=== PATIENT | male | born 1960 | race Caucasian/White ===

== ENCOUNTER → 2019-12-02 | Outpatient (CLI) | payer BC | LOC: LAB EV 15:41 → LAB SHORT 15:41 | DX: L02.511 Cutaneous abscess of right hand (principal) | CPT/HCPCS: 87070; 87075; 87205 ==

== ENCOUNTER → 2019-12-03 | Outpatient (CLI) | payer BC | END | disposition home or self-care (01) | LOC: LAB EV 11:36 → LAB SHORT 11:36 | DX: L08.9 Local infection of the skin and subcutaneous tissue, unspecified (principal) | CPT/HCPCS: 87070; 87075; 87205 ==

== ENCOUNTER → 2020-01-04 | Outpatient (CLI) | payer BC | END | disposition home or self-care (01) | LOC: LAB SHORT 19:19 → LAB EV 19:19 | DX: R73.9 Hyperglycemia, unspecified (principal); N39.0 Urinary tract infection, site not specified | CPT/HCPCS: 83036; 87077; 87086; 87186 ==

== ENCOUNTER 2020-07-16 06:08 | Day surgery (SDC) | payer BC ==
[~2020-07-16] VITALS: Ht 188 cm; Wt 103.5 kg
[~2020-07-16 06:08] MED LIST: LISI10 PO; METF500 PO
--- NOTE | 2020-07-16 06:34 | NUR ---
PT ADMITTED TO [facility]. AGREES WITH PLANNED SURGERY. LUNG SOUNDS CLEAR.
--- NOTE | 2020-07-16 10:24 | NUR ---
.Patient up to Ambulate independently. Gait steady. Discharge instructions reviewed with patient. Patient verbalizes understanding. Copy given to patient to take home. Dressing to procedure site clean, dry, intact with no visible drainage, swelling, erythema or bruising noted. Patient States Post-Procedure ride home has been arranged. Discharged via wheelchair to private car for ride home. ALL BELONINGS RETUNED TO PATIENT. PT DID NOT WANT A PAIN PILL BEFORE DISCHARGE. PT ALEXIS PO
== END 2020-07-16 22:53 | disposition home or self-care (01) ==
LOC: ORSCMMR 06:08 → ORD 07:30 → ORSCMMR 22:53
PROVIDERS: Surgery
PROC: 0JB70ZZ Excision of Back Subcutaneous Tissue and Fascia, Open Approach (ICD-10-PCS; principal; 2020-07-16 07:30)
DX: L72.0 Epidermal cyst (principal); I10 Essential (primary) hypertension; E11.9 Type 2 diabetes mellitus without complications; F17.210 Nicotine dependence, cigarettes, uncomplicated; Z79.84 Long term (current) use of oral hypoglycemic drugs
CPT/HCPCS: 82947; 88304; J0690; J1100; J1885; J2250; J2405; J2704; J3010; J7120

== ENCOUNTER → 2023-12-30 | Outpatient (CLI) | payer BC ==
[2023-12-30 14:01] LABS: BASOPHILS ABSOLUTE AUTO 0.06 K/mm3 (0.00-0.23); BASOPHILS PERCENT AUTO 1 % (0-2); EOSINOPHILS ABSOLUTE AUTO 0.03 K/mm3 (0.00-0.68); EOSINOPHILS PERCENT AUTO 0 % (0-6); Hematocrit 53.2 % (37.0-53.0); Hemoglobin 18.7 g/dL (13.5-17.5); IMMATURE GRAN ABSOLUTE AUTO 0.01 K/mm3 (0.00-0.10); IMMATURE GRAN PERCENT AUTO 0 % (0-1); LYMPHOCYTES ABSOLUTE AUTO 1.81 K/mm3 (0.84-5.20); LYMPHOCYTES PERCENT AUTO 25 % (21-46); MONOCYTES ABSOLUTE AUTO 0.59 K/mm3 (0.16-1.47); MONOCYTES PERCENT AUTO 8 % (4-13); Mean Corpuscular HGB 32.9 pg (26.0-34.0); Mean Corpuscular HGB Conc 35.2 g/dL (31.5-36.5); Mean Corpuscular Volume 94 fL (80-100); Mean Platelet Volume 9.7 fL (9.1-12.4); NEUTROPHILS PERCENT AUTO 66 % (41-73); Platelet Count 256 K/mm3 (150-400); RDW Coefficient Variation 12.8 % (11.7-14.2); RDW Standard Deviation 43.7 fL (35.1-46.3); Red Blood Cell Count 5.69 M/mm3 (4.30-5.90)
[2023-12-30 14:10] LABS: Bilirubin, Total 0.9 mg/dL (0.1-1.0); Bun/Creatinine Ratio 9.6 (12.0-20.0); Calcium, Blood 9.3 mg/dL (8.5-10.1); Creatinine, Blood 0.94 mg/dL (0.60-1.20); Globulin, Blood 4.1 g/dL (2.2-4.0); Potassium, Blood 4.6 mmol/L (3.5-5.5); Total Protein, Blood 8.1 g/dL (6.4-8.2)
== END ==
LOC: LAB SHORT 13:53
PROVIDERS: Chiropractor
DX: R10.11 Right upper quadrant pain (principal)
CPT/HCPCS: 80053; 83036; 83690; 85025

== ENCOUNTER → 2024-02-08 | Outpatient (CLI) | payer OTHER ==
[~2024-02-08] MED LIST changes: +JARDIANCE10 MG PO; +LISI5 PO
== END ==
LOC: LAB SHORT 07:23 → LAB 07:23
DX: L98.499 Non-pressure chronic ulcer of skin of other sites with unspecified severity (principal); E11.621 Type 2 diabetes mellitus with foot ulcer; E11.51 Type 2 diabetes mellitus with diabetic peripheral angiopathy without gangrene; E11.42 Type 2 diabetes mellitus with diabetic polyneuropathy; R26.2 Difficulty in walking, not elsewhere classified; M20.5X2 Other deformities of toe(s) (acquired), left foot; M20.5X1 Other deformities of toe(s) (acquired), right foot; M21.6X2 Other acquired deformities of left foot
CPT/HCPCS: 88305; 88307

== ENCOUNTER → 2024-02-08 | Outpatient (CLI) | payer OTHER | END | disposition home or self-care (01) | LOC: LAB SHORT 20:36 → LAB 20:36 | DX: E11.621 Type 2 diabetes mellitus with foot ulcer (principal); L97.509 Non-pressure chronic ulcer of other part of unspecified foot with unspecified severity; E11.51 Type 2 diabetes mellitus with diabetic peripheral angiopathy without gangrene; E11.42 Type 2 diabetes mellitus with diabetic polyneuropathy; R26.2 Difficulty in walking, not elsewhere classified; M20.5X2 Other deformities of toe(s) (acquired), left foot; M20.5X1 Other deformities of toe(s) (acquired), right foot; M21.6X2 Other acquired deformities of left foot | CPT/HCPCS: 87070; 87205 ==

== ENCOUNTER 2025-02-19 11:54 | Emergency (ER) | payer OTHER, MEDICARE ==
[~2025-02-19] VITALS: Ht 188 cm; Wt 86.0 kg
[~2025-02-19 11:54] MED LIST changes: +PIOG15 PO
[2025-02-19 13:02] LABS: BASOPHILS ABSOLUTE AUTO 0.05 K/mm3 (0.00-0.23); BASOPHILS PERCENT AUTO 0 % (0-2); EOSINOPHILS ABSOLUTE AUTO 0.02 K/mm3 (0.00-0.68); EOSINOPHILS PERCENT AUTO 0 % (0-6); Hematocrit 50.6 % (37.0-53.0); IMMATURE GRAN ABSOLUTE AUTO 0.03 K/mm3 (0.00-0.10); IMMATURE GRAN PERCENT AUTO 0 % (0-1); LYMPHOCYTES ABSOLUTE AUTO 1.25 K/mm3 (0.84-5.20); LYMPHOCYTES PERCENT AUTO 11 % (21-46); MONOCYTES ABSOLUTE AUTO 0.91 K/mm3 (0.16-1.47); MONOCYTES PERCENT AUTO 8 % (4-13); Mean Corpuscular HGB 34.8 pg (26.0-34.0); Mean Corpuscular HGB Conc 35.6 g/dL (31.5-36.5); Mean Corpuscular Volume 98 fL (80-100); Mean Platelet Volume 9.5 fL (9.1-12.4); NEUTROPHILS ABSOLUTE AUTO 9.63 K/mm3 (1.96-9.15); NEUTROPHILS PERCENT AUTO 81 % (41-73); Platelet Count 317 K/mm3 (150-400); RDW Coefficient Variation 12.6 % (11.7-14.2); RDW Standard Deviation 45.3 fL (35.1-46.3); Red Blood Cell Count 5.17 M/mm3 (4.30-5.90); White Blood Cell Count 11.89 K/mm3 (4.00-11.30)
[2025-02-19 13:22] LABS: Albumin/Globulin Ratio 0.6 (0.8-1.8); Bilirubin, Total 0.6 mg/dL (0.1-1.0); Bun/Creatinine Ratio 17.7 (12.0-20.0); Calcium, Blood 8.7 mg/dL (8.5-10.1); Creatinine, Blood 0.57 mg/dL (0.60-1.20); Globulin, Blood 5.2 g/dL (2.2-4.0); Potassium, Blood 4.2 mmol/L (3.5-5.5); Total Protein, Blood 8.2 g/dL (6.4-8.2)
[2025-02-19] MEDS ORDERED: METF500C PO (14:46)
[2025-02-19] MEDS ORDERED: AMOX-CLAV 875-1 EAC5 PO (14:47)
[2025-02-19] MEDS ORDERED: Lisinopril10 MG PO (14:47)
[2025-02-19] MEDS ORDERED: NS 1,000 ML IV SCH (15:45)
[2025-02-19 17:30] VITALS: BP 177/97
[2025-02-21] MEDS ORDERED: Crestor40 MG PO (15:59)
== END 2025-02-19 17:49 | disposition home or self-care (01) ==
LOC: ER 11:54
PROVIDERS: Physician Assistant
DX: E11.51 Type 2 diabetes mellitus with diabetic peripheral angiopathy without gangrene (principal); I87.2 Venous insufficiency (chronic) (peripheral); F17.200 Nicotine dependence, unspecified, uncomplicated
CPT/HCPCS: 73630; 80053; 85025; 96360; 99283-25; J7030

== ENCOUNTER 2025-02-22 07:47 | Day surgery (SDC) | payer OTHER ==
[~2025-02-22] VITALS: Ht 188 cm; Wt 86.2 kg
[~2025-02-22 07:47] MED LIST changes: +AMOX-CLAV 875-1 EAC5 PO; +Crestor40 MG PO; +Lisinopril10 MG PO; +METF500C PO
[2025-02-22] MEDS ORDERED: Midazolam HCl 1MG / ML 2ML Vial ONE ×2 (08:03→08:58)
[2025-02-22] MEDS ORDERED: NS 1,000 ML IV ONE ×2 (08:04→08:17)
[2025-02-22] MEDS ORDERED: FentaNYL Citrate 50 MCG/ML 2 ML Injection ONE ×2 (08:04→08:59)
[2025-02-22 08:11] VITALS: BP 183/104
[2025-02-22 08:13] VITALS: BP 183/104
[2025-02-22 08:15] VITALS: BP 152/98
[2025-02-22] MEDS ORDERED: NS 100 ML IV ONE (08:16)
[2025-02-22] MEDS ORDERED: NS 250 ML IV ONE (08:16)
[2025-02-22] MEDS ORDERED: Heparin Sodium 1000 Units/ML 10ML MDV ONE ×2 (08:17→09:24)
[2025-02-22] MEDS ORDERED: HydrALAZINE HCl 20 MG / ML 1ML Vial ONE (09:10)
[2025-02-22 10:00] VITALS: BP 152/82
--- NOTE | 2025-02-22 10:00 | NUR ---
PT ARRIVES BACK FROM SUBSTATION ELECTRICIAN REMAINS IN SUPINE POSITION, RIGHT GROIN SOFT AND NON TENDER. ANGIOSEAL TO GROIN. PT. ASSISTED TO EAT SOME BREAKFST AND PROVIDED WITH FLUIDS. PT. VSS UPON ARRIVAL TO UNIT. CALL LIGHT IN REACH. DISTAL PULSES REMAIN UNCHAGED.
--- NOTE | 2025-02-22 10:14 | NUR ---
NEW PRESCRIPTION FOR PLAVIX CALLED TO [facility] [address] PER PT REQUEST.
[2025-02-22 10:15] VITALS: BP 163/87
[2025-02-22] MEDS ORDERED: CLOP75 PO (10:22)
[2025-02-22 10:31] VITALS: BP 155/86
--- NOTE | 2025-02-22 10:59 | NUR ---
PT HOB ELEVATED TO 30 DEGREES. RIGHT GROIN SITE REMAINS UNCHANGED FROM PREVIOUS ASSESSMENT. ADDITIONAL SNACKS PROVIDED. VSS
--- NOTE | 2025-02-22 11:51 | NUR ---
pt up to bathroom to void. R groin site assessed after sitting at bedside and then again when back to bed, remains unchanged from intial assessment. soft no oozing.
--- NOTE | 2025-02-22 12:42 | NUR ---
Pt site assessed, remains unchanged. Pt. discharge instructions reviewed in detail. no further questions at this time. Pt IV removed, catheter intact. Pt. VSS. Pt update on time for dishcharge. Pt able to get self dressed.
--- NOTE | 2025-02-22 12:49 | NUR ---
pt dressed site assessed again and remains wnl. Pt. verbalized understanding of discharge instructions. Pt to pick pt up. VSS upon discharge. ALENAN.
== END 2025-02-22 13:00 | disposition home or self-care (01) ==
LOC: MHTC 07:47
DX: E11.51 Type 2 diabetes mellitus with diabetic peripheral angiopathy without gangrene (principal); I70.222 Atherosclerosis of native arteries of extremities with rest pain, left leg; I96 Gangrene, not elsewhere classified; I10 Essential (primary) hypertension; E78.5 Hyperlipidemia, unspecified; F17.210 Nicotine dependence, cigarettes, uncomplicated; Z88.5 Allergy status to narcotic agent; Z79.899 Other long term (current) drug therapy; Z79.84 Long term (current) use of oral hypoglycemic drugs
CPT/HCPCS: 37227; 50432; 75625; 75716; 75774; 76937; 99152; 99153; C1714; C1725; C1760; C1769; C1874; C1887; C1894; C2623; J0360; J1644; J2250; J3010; J7030; J7050; Q9967

== ENCOUNTER → 2025-03-06 | Outpatient (CLI) | payer OTHER ==
[~2025-03-06] MED LIST changes: +CLOP75 PO
== END | disposition home or self-care (01) ==
LOC: LAB SHORT 15:00 → LAB 15:00
DX: M86.172 Other acute osteomyelitis, left ankle and foot (principal); M89.8X8 Other specified disorders of bone, other site; Z89.432 Acquired absence of left foot; E11.42 Type 2 diabetes mellitus with diabetic polyneuropathy; E11.621 Type 2 diabetes mellitus with foot ulcer; E11.59 Type 2 diabetes mellitus with other circulatory complications; I70.222 Atherosclerosis of native arteries of extremities with rest pain, left leg
CPT/HCPCS: 87071; 87075; 87076; 87147; 87185; 87205; 88305; 88307; 88311

== ENCOUNTER → 2025-03-20 | Outpatient (CLI) | payer OTHER | LOC: LAB SHORT 18:03 → LAB 18:03 | DX: E11.621 Type 2 diabetes mellitus with foot ulcer (principal) | CPT/HCPCS: 87070; 87075; 87076; 87077; 87147; 87185; 87186; 87205 ==

== ENCOUNTER 2025-05-17 09:47 | Inpatient (IN) | payer OTHER ==
[~2025-05-17] VITALS: Ht 188 cm; Wt 81.0 kg
[2025-05-17 10:26] LABS: BASOPHILS ABSOLUTE AUTO 0.05 K/mm3 (0.00-0.23); BASOPHILS PERCENT AUTO 0 % (0-2); EOSINOPHILS ABSOLUTE AUTO 0.03 K/mm3 (0.00-0.68); EOSINOPHILS PERCENT AUTO 0 % (0-6); Hematocrit 44.0 % (37.0-53.0); Hemoglobin 15.1 g/dL (13.5-17.5); IMMATURE GRAN ABSOLUTE AUTO 0.05 K/mm3 (0.00-0.10); IMMATURE GRAN PERCENT AUTO 0 % (0-1); LYMPHOCYTES ABSOLUTE AUTO 1.28 K/mm3 (0.84-5.20); LYMPHOCYTES PERCENT AUTO 11 % (21-46); MONOCYTES ABSOLUTE AUTO 0.86 K/mm3 (0.16-1.47); MONOCYTES PERCENT AUTO 7 % (4-13); Mean Corpuscular HGB Conc 34.3 g/dL (31.5-36.5); Mean Corpuscular Volume 95 fL (80-100); NEUTROPHILS ABSOLUTE AUTO 9.51 K/mm3 (1.96-9.15); NEUTROPHILS PERCENT AUTO 81 % (41-73); NRBC ABSOLUTE 0.00 K/mm3 (0.00-0.02); NRBC Auto 0.0 /100 WBC (0.0-0.2); Platelet Count 361 K/mm3 (150-400); RDW Coefficient Variation 15.9 % (11.7-14.2); RDW Standard Deviation 55.8 fL (35.1-46.3)
[2025-05-17 10:41] LABS: Prothrombin Time Results 14.6 Sec (9.7-11.5)
[2025-05-17] MEDS ORDERED: CeFAZolin Sodium 2,000 MG in NS 100 ML IV ONE (11:15)
[2025-05-17 11:46] LABS: Alanine Aminotransfer (ALT/SGP 25.0 U/L (12-78); Albumin, Blood 2.5 g/dL (3.4-5.0); Albumin/Globulin Ratio 0.5 (0.8-1.8); Anion Gap 14.0 mmol/L (3-11); Aspartate Aminotrans (AST/SGOT 34.0 U/L (12-37); Bilirubin, Total 0.7 mg/dL (0.1-1.0); Blood Urea Nitrogen 12.0 mg/dL (8-24); CO2, Blood 28.0 mmol/L (21-32); Calcium, Blood 8.6 mg/dL (8.5-10.1); Chloride, Blood 91.0 mmol/L (98-108); Creatinine, Blood 0.57 mg/dL (0.60-1.20); Globulin, Blood 5.5 g/dL (2.2-4.0); Glucose, Blood 219.0 mg/dL (70-99); Potassium, Blood 4.6 mmol/L (3.5-5.5); Sodium, Blood 128.0 mmol/L (136-145); Total Protein, Blood 8.0 g/dL (6.4-8.2)
[2025-05-17] MEDS ORDERED: Ipratropium/Albuterol SulF 2.5-0.5MG/3 ML Amp INH ONE (12:10)
[2025-05-17] MEDS ORDERED: Vancomycin (Pharmacy Consult) IV SCH (13:00)
[2025-05-17 15:13] VITALS: BP 155/103
[2025-05-17] MEDS ORDERED: Insulin Human Lispro 100 Units/ML 3ML Syringe SC SCH (16:30)
--- NOTE | 2025-05-17 16:35 | NUR ---
PT ADMITTED FROM ER TO MEDICAL UNIT AT APPROX 1500. PT ABLE TO STAND AND AMBULATE INDEPENDENTLY TO RESTROOM. PT INDEPENDENT IN ROOM. REPORTS SOB WITH EXERTION AND MINIMAL PAIN WITH AMBULATION. LEFT DIABETIC FOOT ULCER ASSESSED, CLEANSED, AND DRESSED - PHOTOS IN CHART. TELE PLACED ON PT - SR @ 62. PT ORIENTED TO ROOM AND CALL SYSTEM. ADMISSION COMPLETED - MED REC COMPLETED AT BEST ABILITY FROM PT INFORMATION AND MED CLAIM HX. PT STATES HE LIVES WITH SPOUSE BUT HAS NO WAY FOR HER TO INFORM US OF ALL MEDICATIONS PT TAKES AT THIS TIME. PT CURRENTLY RESTING IN BED WITH BED IN LOWEST POSITION AND CALL LIGHT WITHIN REACH.
[2025-05-17] MEDS ORDERED: Piperacillin/Tazobactam Sod 4.5 GM in NS 100 ML IV SCH (16:46)
[2025-05-17] MEDS ORDERED: NS 250 ML IV PRN (17:00)
[2025-05-17] MEDS ORDERED: CLOP75 PO (18:20)
[2025-05-17] MEDS ORDERED: Norco 5-325 Ta1 EACH PO (18:22)
[2025-05-17] MEDS ORDERED: PIOG15 PO (18:23)
[2025-05-17 19:26] VITALS: BP 132/88
[2025-05-17 23:34] VITALS: BP 117/73
[2025-05-18] MEDS ORDERED: Piperacillin/Tazobactam Sod 4.5 GM in NS 100 ML IV SCH
[2025-05-18 05:11] VITALS: BP 110/71
--- NOTE | 2025-05-18 05:21 | NUR ---
SHIFT SUMMARY PT IS ALERT AND ORIENTED TIMES 3, ADMITTED FOR LEFT DIBETIC FOOT ULCER. PT IS ALERT AND ORIENTED TIMES 3-4. PT IS COOPERATIVE WITH CARE AND ABLE TO MAKE NEEDS KNOWN TO STAFF AND INDEPENDENT TO TOILET. PT REQUESTED PAIN CARE MANAGEMENT DILAUDID PO Q4 WITH COMPAZINE AND DILAUDID 1MG IV Q4 WITH REGLAN. PT APPEARED TO SLEEP ON AND OFF THROUGH THE NIGHT. BED IS IN LOW POSITION, CALL LIGHT IS WITHIN REACH, AND RAILS ARE TIMES 2.
[2025-05-18 07:20] VITALS: BP 120/78
[2025-05-18 08:25] LABS: BASOPHILS ABSOLUTE AUTO 0.04 K/mm3 (0.00-0.23); BASOPHILS PERCENT AUTO 1 % (0-2); EOSINOPHILS ABSOLUTE AUTO 0.04 K/mm3 (0.00-0.68); EOSINOPHILS PERCENT AUTO 1 % (0-6); Hematocrit 36.3 % (37.0-53.0); Hemoglobin 12.2 g/dL (13.5-17.5); IMMATURE GRAN ABSOLUTE AUTO 0.03 K/mm3 (0.00-0.10); IMMATURE GRAN PERCENT AUTO 0 % (0-1); LYMPHOCYTES ABSOLUTE AUTO 1.44 K/mm3 (0.84-5.20); LYMPHOCYTES PERCENT AUTO 18 % (21-46); MONOCYTES ABSOLUTE AUTO 0.71 K/mm3 (0.16-1.47); MONOCYTES PERCENT AUTO 9 % (4-13); Mean Corpuscular HGB Conc 33.6 g/dL (31.5-36.5); Mean Corpuscular Volume 94 fL (80-100); NEUTROPHILS ABSOLUTE AUTO 5.60 K/mm3 (1.96-9.15); NEUTROPHILS PERCENT AUTO 71 % (41-73); NRBC ABSOLUTE 0.00 K/mm3 (0.00-0.02); NRBC Auto 0.0 /100 WBC (0.0-0.2); Platelet Count 289 K/mm3 (150-400); RDW Coefficient Variation 15.9 % (11.7-14.2); RDW Standard Deviation 54.6 fL (35.1-46.3)
[2025-05-18 08:41] LABS: Alanine Aminotransfer (ALT/SGP 19.0 U/L (12-78); Albumin, Blood 1.9 g/dL (3.4-5.0); Albumin/Globulin Ratio 0.5 (0.8-1.8); Anion Gap 8.0 mmol/L (3-11); Aspartate Aminotrans (AST/SGOT 25.0 U/L (12-37); Bilirubin, Total 0.4 mg/dL (0.1-1.0); Blood Urea Nitrogen 9.0 mg/dL (8-24); CO2, Blood 28.0 mmol/L (21-32); Calcium, Blood 7.7 mg/dL (8.5-10.1); Chloride, Blood 97.0 mmol/L (98-108); Creatinine, Blood 0.55 mg/dL (0.60-1.20); Globulin, Blood 4.2 g/dL (2.2-4.0); Glucose, Blood 170.0 mg/dL (70-99); Potassium, Blood 3.5 mmol/L (3.5-5.5); Sodium, Blood 129.0 mmol/L (136-145); Total Protein, Blood 6.1 g/dL (6.4-8.2)
[2025-05-18 13:01] VITALS: BP 139/87
[2025-05-18 16:22] VITALS: BP 137/90
[2025-05-18 18:06] LABS: Vancomycin, Trough 22.4 ug/mL (5.0-10.0)
--- NOTE | 2025-05-18 18:32 | NUR ---
SHIFT SUMMARY PT IS A/OX4. INDEPENDENT IN THE ROOM. NO ACUTE CHANGES THROUGHOUT THIS SHIFT. CONTINUING IV ANTIBIOTICS. MRI TO THE LLE COMPLETED THIS MORNING. DR BRISENO AT BEDSIDE THIS AFTERNOON. DR SINGH CONSULTED THIS MORNING AND AT BEDSIDE THIS AFTERNOON. ON TELE RUNNING NORMAL SINUS RYTHYM IN THE 70'S. FAMILY AT BEDSIDE THROUGHOUT THIS SHIFT. EXPECTED ANGIO IN THE MORNING.
[2025-05-18 20:01] VITALS: BP 137/79
[2025-05-19] VITALS (7 sets, daily range): BP systolic 122–157; BP diastolic 71–91
[2025-05-19 04:51] LABS: BASOPHILS ABSOLUTE AUTO 0.07 K/mm3 (0.00-0.23); BASOPHILS PERCENT AUTO 1 % (0-2); EOSINOPHILS ABSOLUTE AUTO 0.07 K/mm3 (0.00-0.68); EOSINOPHILS PERCENT AUTO 1 % (0-6); Hematocrit 37.4 % (37.0-53.0); Hemoglobin 12.4 g/dL (13.5-17.5); IMMATURE GRAN ABSOLUTE AUTO 0.04 K/mm3 (0.00-0.10); IMMATURE GRAN PERCENT AUTO 0 % (0-1); LYMPHOCYTES ABSOLUTE AUTO 2.41 K/mm3 (0.84-5.20); LYMPHOCYTES PERCENT AUTO 21 % (21-46); MONOCYTES ABSOLUTE AUTO 1.05 K/mm3 (0.16-1.47); MONOCYTES PERCENT AUTO 9 % (4-13); Mean Corpuscular HGB Conc 33.2 g/dL (31.5-36.5); Mean Corpuscular Volume 96 fL (80-100); NEUTROPHILS ABSOLUTE AUTO 7.89 K/mm3 (1.96-9.15); NEUTROPHILS PERCENT AUTO 69 % (41-73); NRBC ABSOLUTE 0.00 K/mm3 (0.00-0.02); NRBC Auto 0.0 /100 WBC (0.0-0.2); Platelet Count 331 K/mm3 (150-400); RDW Coefficient Variation 15.9 % (11.7-14.2); RDW Standard Deviation 56.4 fL (35.1-46.3)
[2025-05-19 05:17] LABS: Anion Gap 9.0 mmol/L (3-11); Blood Urea Nitrogen 7.0 mg/dL (8-24); CO2, Blood 27.0 mmol/L (21-32); Calcium, Blood 7.9 mg/dL (8.5-10.1); Chloride, Blood 100.0 mmol/L (98-108); Creatinine, Blood 0.55 mg/dL (0.60-1.20); Glucose, Blood 154.0 mg/dL (70-99); Potassium, Blood 3.5 mmol/L (3.5-5.5); Sodium, Blood 132.0 mmol/L (136-145)
--- NOTE | 2025-05-19 05:33 | NUR ---
SHIFT SUMMARY PT IS ALERT AND ORIENTED TIMES 3, ADMITTED FOR LEFT DIBETIC FOOT ULCER. PT IS ALERT AND ORIENTED TIMES 3-4. PT IS COOPERATIVE WITH CARE AND ABLE TO MAKE NEEDS KNOWN TO STAFF AND INDEPENDENT TO TOILET. PT REQUESTED PAIN CARE MANAGEMENT DILAUDID PO Q4 WITH COMPAZINE AND DILAUDID 1MG IV Q4 WITH REGLAN. PT APPEARED TO SLEEP ON AND OFF THROUGH THE NIGHT. PT NPO AT MIDNIGHT FOR ANGIO WITH IR THIS MORNING. BED IS IN LOW POSITION, CALL LIGHT IS WITHIN REACH, AND RAILS ARE TIMES 2.
[2025-05-19] MEDS ORDERED: NS 250 ML IV ONE (11:17)
[2025-05-19] MEDS ORDERED: NS 1,000 ML IV ONE ×2 (11:18→11:44)
[2025-05-19] MEDS ORDERED: Heparin Sodium 1000 Units/ML 10ML MDV ONE (11:18)
[2025-05-19] MEDS ORDERED: Nitroglycerin 2 MG/20 ML BTL ONE (11:18)
--- NOTE | 2025-05-19 11:36 | NUR ---
PT TAKEN DOWN FOR PROCEDURE. PT'S AT BEDSIDE.
[2025-05-19] MEDS ORDERED: Midazolam HCl 1MG / ML 2ML Vial ONE (11:48)
[2025-05-19] MEDS ORDERED: FentaNYL Citrate 50 MCG/ML 2 ML Injection ONE (11:48)
[2025-05-19] MEDS ORDERED: Dexamethasone Sod Phos 10 MG/ML 1ML VIAL ONE ×2 (12:23→13:22)
[2025-05-19] MEDS ORDERED: Ropivacaine 0.5% HCL/PF 5 MG/ML 30ML Vial ONE ×2 (12:23→13:20)
[2025-05-19] MEDS ORDERED: EpiNEPhrine 1 MG/1 ML 1ML Vial ONE (12:24)
--- NOTE | 2025-05-19 16:52 | NUR ---
SHIFT SUMMARY. PT ARRIVED ON UNIT THIS AFTERNOON S/P REVASC W/ DR. BRISENO. ATE DURING RECOVERY PRIOR TO ARRIVAL ON UNIT. REPORTS ONLY VERY MILD SORENESS, OTHERWISE NO PAIN. VITALS STABLE. RUNNING SINUS ON TELE. DRESSING WAS C/D/I. R. GROIN SITE C/D/I ONLY MINIMAL TENDERNESS. MAINTAINING ADEQUATE SATURATION ON ROOM AIR. DR. HAWKINS VISITED PATIENT THIS EVENING TO TALK W/ PT AND ANSWER QUESTIONS. LIKELY TO GIVE REVASC FEW DAYS AND REASSESS NEED FOR AMPUTATION AT THAT TIME. PT AND UNDERSTANDING. REDRESSED FOOT AT THAT TIME. DRESSING C/D/I AT THIS TIME. SHIFT OTHERWISE HAS GONE WELL. BED LOCKED IN LWEST POSITION. CALL LIGHT WITHIN REACH.
--- NOTE | 2025-05-19 19:29 | NUR ---
ASSUMPTION OF CARE ASSUMED PT'S CARE AT 1900.BEDSIDE REPORT COMPLETED.PT WIDE AWAKE WATCHING TV,SPOUSE AT BEDSIDE.PLAN OF CARE REVIEWED.RIGHT GROIN SITE DRESSING CDI,NO SWELLING OR HEMATOMA NOTED AT THE SITE.DRESSING TO LEFT FOOT CDI.PT DENIES PAIN,DENIES NEEDS AT THIS TIME.CALL LIGHT AND PT'S ITEMS WITHIN REACH.MONITORING ONGOING PER CAREPLAN.
[2025-05-20 04:26] VITALS: BP 144/105
[2025-05-20 04:56] LABS: BASOPHILS ABSOLUTE AUTO 0.04 K/mm3 (0.00-0.23); BASOPHILS PERCENT AUTO 1 % (0-2); EOSINOPHILS ABSOLUTE AUTO 0.08 K/mm3 (0.00-0.68); EOSINOPHILS PERCENT AUTO 1 % (0-6); Hematocrit 35.4 % (37.0-53.0); Hemoglobin 11.8 g/dL (13.5-17.5); IMMATURE GRAN ABSOLUTE AUTO 0.03 K/mm3 (0.00-0.10); IMMATURE GRAN PERCENT AUTO 0 % (0-1); LYMPHOCYTES ABSOLUTE AUTO 1.03 K/mm3 (0.84-5.20); LYMPHOCYTES PERCENT AUTO 13 % (21-46); MONOCYTES ABSOLUTE AUTO 0.53 K/mm3 (0.16-1.47); MONOCYTES PERCENT AUTO 7 % (4-13); Mean Corpuscular HGB Conc 33.3 g/dL (31.5-36.5); Mean Corpuscular Volume 95 fL (80-100); NEUTROPHILS ABSOLUTE AUTO 6.38 K/mm3 (1.96-9.15); NEUTROPHILS PERCENT AUTO 79 % (41-73); NRBC ABSOLUTE 0.00 K/mm3 (0.00-0.02); NRBC Auto 0.0 /100 WBC (0.0-0.2); Platelet Count 292 K/mm3 (150-400); RDW Coefficient Variation 15.8 % (11.7-14.2); RDW Standard Deviation 55.6 fL (35.1-46.3)
[2025-05-20 05:21] LABS: Anion Gap 5.0 mmol/L (3-11); Blood Urea Nitrogen 4.0 mg/dL (8-24); CO2, Blood 32.0 mmol/L (21-32); Calcium, Blood 7.8 mg/dL (8.5-10.1); Chloride, Blood 100.0 mmol/L (98-108); Creatinine, Blood 0.59 mg/dL (0.60-1.20); Glucose, Blood 146.0 mg/dL (70-99); Phosphorus, Blood 3.2 mg/dL (2.5-4.9); Potassium, Blood 3.3 mmol/L (3.5-5.5); Sodium, Blood 134.0 mmol/L (136-145)
--- NOTE | 2025-05-20 06:52 | NUR ---
PT MONITORED THROUGH THE NIGHT.PT HAS BEEN GETTING OOB INDEPENDENTLY TO USE THE BATHROOM.NO ACUTE EVENTS NOTED OVERNIGHT.PT HAS BEEN NPO SINCE MIDNIGHT.PT DENIES PAIN,DENIES NEEDS AT THIS TIME.CALL LIGHT AND PT'S ITEMS WITHIN REACH.MONITORING ONGOING PER CAREPLAN.
[2025-05-20 09:12] VITALS: BP 163/94
[2025-05-20 09:28] LABS: Vancomycin, Trough 21.3 ug/mL (5.0-10.0)
[2025-05-20 12:16] VITALS: BP 151/87
[2025-05-20 15:36] LABS: Vancomycin, Trough 14.7 ug/mL (5.0-10.0)
[2025-05-20 16:48] VITALS: BP 158/89
--- NOTE | 2025-05-20 17:01 | NUR ---
SHIFT SUMMARY. SHIFT HAS GONE WELL OVERALL. PT AOX4, PLEASANT, COOPERATIVE WITH CARE, ABLE TO MAKE NEEDS KNOWN. WAS NPO THIS MORNING UNTIL DR. HAWKINS DIRECTED PT BE ALLOWED TO EAT. SPOKE WITH DR. SINGH REGARDING EVALUATION FOR POSSIBLE FURTHER SURGERY. DR. SINGH PLANS TO ROUND MORNING OF 05/[address] NAVA, DIRECTED TO KEEP PT NPO AFTER MIDNIGHT UNTIL DR. SINGH ROUNDS. PT AWARE. CONTINUES TO HAVE NO MANIFESTATIONS OF ETOH WITHDRAWAL. NOTES AT TIMES THAT HE WANTS TO SMOKE A CIGARETTE BUT DENIES WANTING ANY NICOTINE REPLACEMENT FOR INPATIENT STAY. VITALS STABLE, CONTINUES TO RUN SINUS ON TELE. SHIFT OTHERWISE UNREMARKABLE. BED LOCKED IN LOWEST POSITION. CALL LIGHT LEFT WITHIN REACH. CONTINUING TO MONITOR.
--- NOTE | 2025-05-20 19:25 | NUR ---
ASSUMPTION OF CARE ASSUMED PT'S CARE AT 1900,BEDSIDE REPORT COMPLETED.PT SITTING UP IN BED EATING DINNER,SPOUSE AT BEDSIDE.PLAN OF CARE REVIEWED.PT DENIES PAIN,DENIES NEEDS AT THIS TIME.CALL LIGHT AND PT'S ITEMS WITHIN REACH.MONITORING ONGOING PER CAREPLAN.
[2025-05-20 19:58] VITALS: BP 135/61; BP 139/96
[2025-05-21 00:16] VITALS: BP 153/94
[2025-05-21 04:19] VITALS: BP 143/88
[2025-05-21 04:39] LABS: BASOPHILS ABSOLUTE AUTO 0.04 K/mm3 (0.00-0.23); BASOPHILS PERCENT AUTO 1 % (0-2); EOSINOPHILS ABSOLUTE AUTO 0.07 K/mm3 (0.00-0.68); EOSINOPHILS PERCENT AUTO 1 % (0-6); Hematocrit 31.3 % (37.0-53.0); Hemoglobin 10.5 g/dL (13.5-17.5); IMMATURE GRAN ABSOLUTE AUTO 0.02 K/mm3 (0.00-0.10); IMMATURE GRAN PERCENT AUTO 0 % (0-1); LYMPHOCYTES ABSOLUTE AUTO 1.37 K/mm3 (0.84-5.20); LYMPHOCYTES PERCENT AUTO 16 % (21-46); MONOCYTES ABSOLUTE AUTO 0.82 K/mm3 (0.16-1.47); MONOCYTES PERCENT AUTO 9 % (4-13); Mean Corpuscular HGB Conc 33.5 g/dL (31.5-36.5); Mean Corpuscular Volume 96 fL (80-100); NEUTROPHILS ABSOLUTE AUTO 6.40 K/mm3 (1.96-9.15); NEUTROPHILS PERCENT AUTO 73 % (41-73); NRBC ABSOLUTE 0.00 K/mm3 (0.00-0.02); NRBC Auto 0.0 /100 WBC (0.0-0.2); Platelet Count 282 K/mm3 (150-400); RDW Coefficient Variation 15.6 % (11.7-14.2); RDW Standard Deviation 55.4 fL (35.1-46.3)
[2025-05-21 05:08] LABS: Alanine Aminotransfer (ALT/SGP 17.0 U/L (12-78); Albumin, Blood 1.8 g/dL (3.4-5.0); Albumin/Globulin Ratio 0.4 (0.8-1.8); Anion Gap 7.0 mmol/L (3-11); Aspartate Aminotrans (AST/SGOT 17.0 U/L (12-37); Bilirubin, Total 0.4 mg/dL (0.1-1.0); Blood Urea Nitrogen 9.0 mg/dL (8-24); CO2, Blood 28.0 mmol/L (21-32); Calcium, Blood 7.6 mg/dL (8.5-10.1); Chloride, Blood 104.0 mmol/L (98-108); Creatinine, Blood 0.56 mg/dL (0.60-1.20); Globulin, Blood 4.1 g/dL (2.2-4.0); Glucose, Blood 158.0 mg/dL (70-99); Potassium, Blood 2.9 mmol/L (3.5-5.5); Sodium, Blood 136.0 mmol/L (136-145); Total Protein, Blood 5.9 g/dL (6.4-8.2)
--- NOTE | 2025-05-21 06:32 | NUR ---
PT MONITORED DURING THE NIGHT,NO ACUTE EVENTS NOTED OVERNIGHT.PT HAS BEEN NPO SINCE MIDNIGHT.PT SLEEPING AT THIS TIME,EASILY AROUSABLE.PT DENIES PAIN,DENIES NEEDS.CALL LIGHT AND PT'S ITEMS WITHIN REACH.MONITORING ONGOING PER CAREPLAN.
[2025-05-21] MEDS ORDERED: Potassium Chl 20MEQ/Water100ML 100 ML IV SCH (07:30)
[2025-05-21 07:44] VITALS: BP 176/86
[2025-05-21] MEDS ORDERED: Folic Acid 1 MG TAB PO SCH (09:00)
[2025-05-21] MEDS ORDERED: Piperacillin/Tazobactam Sod 4.5 GM in NS 100 ML IV SCH (12:00)
[2025-05-21 14:07] LABS: Anion Gap 8.0 mmol/L (3-11); Blood Urea Nitrogen 9.0 mg/dL (8-24); CO2, Blood 28.0 mmol/L (21-32); Calcium, Blood 7.7 mg/dL (8.5-10.1); Chloride, Blood 102.0 mmol/L (98-108); Creatinine, Blood 0.51 mg/dL (0.60-1.20); Glucose, Blood 217.0 mg/dL (70-99); Potassium, Blood 3.1 mmol/L (3.5-5.5); Sodium, Blood 135.0 mmol/L (136-145)
[2025-05-21 19:21] VITALS: BP 142/75
[2025-05-22] VITALS (20 sets, daily range): BP systolic 126–182; BP diastolic 69–103
[2025-05-22] MEDS ORDERED: Tranexamic Acid 100 ML IV SCH (00:01)
--- NOTE | 2025-05-22 03:18 | NUR ---
SHIFT SUMMARY NO ACUTE EVENTS DURING THIS SHIFT. PT'S BY THE BEDSIDE @HS. NPO AFTER MIDNIGHT FOR SCHEDULED LEFT BKA TODAY 05/22/25. PT DENIES PAIN AND DISCOMFORT. PT AMBULATES INDEPENDENTLY W/I THE HOSPITAL ROOM. CHAVANLEA INFUSED ORDERED. LEFT FOOT DRESSING IS C/D/I. HS BG 163. CONTINUING PT EDUCATION. BED AT THE LOWEST POSITION, CALL LIGHT W/I REACH. PT IS A/O X4, ABLE TO MAKE HIS NEEDS KNONW AND COOPERATIVE WITH CARE. VSS.
[2025-05-22 05:06] LABS: BASOPHILS ABSOLUTE AUTO 0.05 K/mm3 (0.00-0.23); BASOPHILS PERCENT AUTO 1 % (0-2); EOSINOPHILS ABSOLUTE AUTO 0.07 K/mm3 (0.00-0.68); EOSINOPHILS PERCENT AUTO 1 % (0-6); Hematocrit 31.0 % (37.0-53.0); Hemoglobin 10.4 g/dL (13.5-17.5); IMMATURE GRAN ABSOLUTE AUTO 0.03 K/mm3 (0.00-0.10); IMMATURE GRAN PERCENT AUTO 0 % (0-1); LYMPHOCYTES ABSOLUTE AUTO 1.55 K/mm3 (0.84-5.20); LYMPHOCYTES PERCENT AUTO 20 % (21-46); MONOCYTES ABSOLUTE AUTO 0.90 K/mm3 (0.16-1.47); MONOCYTES PERCENT AUTO 12 % (4-13); Mean Corpuscular HGB Conc 33.5 g/dL (31.5-36.5); Mean Corpuscular Volume 95 fL (80-100); NEUTROPHILS ABSOLUTE AUTO 5.25 K/mm3 (1.96-9.15); NEUTROPHILS PERCENT AUTO 67 % (41-73); NRBC ABSOLUTE 0.00 K/mm3 (0.00-0.02); NRBC Auto 0.0 /100 WBC (0.0-0.2); Platelet Count 308 K/mm3 (150-400); RDW Coefficient Variation 15.4 % (11.7-14.2); RDW Standard Deviation 53.7 fL (35.1-46.3)
[2025-05-22 05:28] LABS: Anion Gap 9.0 mmol/L (3-11); Blood Urea Nitrogen 5.0 mg/dL (8-24); CO2, Blood 24.0 mmol/L (21-32); Calcium, Blood 7.3 mg/dL (8.5-10.1); Chloride, Blood 104.0 mmol/L (98-108); Creatinine, Blood 0.51 mg/dL (0.60-1.20); Glucose, Blood 117.0 mg/dL (70-99); Potassium, Blood 3.7 mmol/L (3.5-5.5); Sodium, Blood 133.0 mmol/L (136-145)
[2025-05-22] MEDS ORDERED: Piperacillin/Tazobactam Sod 4.5 GM in NS 100 ML IV SCH (12:00)
--- NOTE | 2025-05-22 14:29 | NUR ---
PATIENT LEFT FLOOR WITH SURGICAL TEAM
[2025-05-22] MEDS ORDERED: FentaNYL Citrate 50 MCG/ML 2 ML Injection ONE ×2 (15:28→17:06)
[2025-05-22] MEDS ORDERED: Dexamethasone Sod Phos 10 MG/ML 1ML VIAL ONE (15:44)
[2025-05-22] MEDS ORDERED: Ondansetron HCl 2 MG / ML 2ML Vial ONE (15:44)
[2025-05-22] MEDS ORDERED: Metoclopramide HCl 5MG / ML 2ML Vial IV PRN (15:55)
[2025-05-22] MEDS ORDERED: HYDROmorphone HCl/Pf 1MG SYR IV PRN ×3 (15:55→19:30)
[2025-05-22] MEDS ORDERED: FentaNYL Citrate 50 MCG/ML 2 ML Injection IV PRN ×2 (15:55)
[2025-05-22] MEDS ORDERED: Albuterol 2.5 MG/3 ML VIAL INH PRN (15:55)
[2025-05-22 15:59] LABS: Vancomycin, Trough 13.6 ug/mL (5.0-10.0)
[2025-05-22] MEDS ORDERED: Ketamine HCl 100 MG / ML 5ML Vial ONE (15:59)
[2025-05-22] MEDS ORDERED: HYDROmorphone HCl/Pf 1MG SYR ONE ×2 (16:04→17:20)
[2025-05-22] MEDS ORDERED: Sugammadex Sodium 200 MG/2ML SDV (100 MG/ML) ONE (16:50)
--- NOTE | 2025-05-22 17:07 | NUR ---
SHIFT SUMMARY PATIENT ABLE TO AMBULATE, PAINFULLY AROUND ROOM INDEPENDENTLY PRIOR TO SURGERY. FAMILY IN ROOM. PATIENT APPEARS IRRITATED EASILY THIS SHIFT. A/O X4. CURRENTLY OFF FLOOR IN SURGICAL CARE.
--- NOTE | 2025-05-22 17:31 | NUR ---
RECEIVED REPORT FROM PACU
--- NOTE | 2025-05-22 19:27 | NUR ---
CONTACTED GORE STITCHER FOR PAIN MEDS ALL ORDERS HAD BEEN D'C AFTER ARRIVAL TO FLOOR. ATTEMPTED CALL TO DR BROWNING WHO DID NOT ANSWER. OKAYED FOR 0.5-1 DILAUDED Q2 PRN. ORDERS PLACED
--- NOTE | 2025-05-22 21:35 | NUR ---
NURSING NOTE: PT HAD AN UNWITNESSED FALL. INSTRUCTED TO CALL WHEN HE WANTED TO USE THE RESTROOM, BUT PT INSISTED HE COULD DO IT HIMSELF, BUT AGREED TO CALL. HEARD A THUD FROM THE [facility] WAY GO INTO THE ROOM TO FIND PT ON THE FLOOR IN THE BATHROOM. STATES HE GRABBED THE WALKER AND WAS GOING FINE UNTIL HE FELL AND HELPED HIMSELF DOWN VIA THE WALL. STATES THAT HE "FORGOT HE HAD A BKA". DENIES ANY EXTRA PAIN. ONLY A SMALL SKIN TEAR ON L ELBOW AND ON BACK. CHARTED AND SOME BANDAGES PLACED ON THE WOUNDS. PT EMBARASSED BUT IS OTHERWISE STABLE AND NO NEURO DEFICITS. DENIES HITTING HEAD. CHARGE NURSE NOTIFIED, PROVIDER CALLED SHORTLY AFTER. NO NEW ORDERS. PT IN BED RESTING, BED IN LOWEST POSITION, CALL LIGHT IN REACH. BED ALARM IN PLACE. CONTINUING CARE.
[2025-05-23] MEDS ORDERED: CeFAZolin Sodium 2,000 MG in NS 100 ML IV SCH
[2025-05-23 00:48] VITALS: BP 179/95
[2025-05-23 04:27] VITALS: BP 173/92
--- NOTE | 2025-05-23 04:42 | NUR ---
SHIFT SUMMARY: PT AOX4 1PA STAND PIVOT TO BSC OR IND WITH URINAL. HAD A FALL AT BEGINNING OF SHIFT, MINOR SKIN TEAR AND WOUND NOTED, SEE NURSING NOTE FOR DETAILS. PT AGREEABLE TO CALLING FOR HELP AND USING URINAL TO VOID. HAS BEEN COMPLIANT WITH CALLING. SOME COMPLAINTS OF PAIN, MEDICATED PER EMR. PT TOLERATING MEDICATIONS WELL. PT IS COOPERATIVE IN CARE AND ABLE TO MAKE NEEDS KNOWN. PT IN BED SLEEPING, BED IN LOWEST POSITION, CALL LIGHT IN REACH. CONTINUING CARE.
[2025-05-23 05:11] LABS: BASOPHILS ABSOLUTE AUTO 0.05 K/mm3 (0.00-0.23); BASOPHILS PERCENT AUTO 1 % (0-2); EOSINOPHILS ABSOLUTE AUTO 0.03 K/mm3 (0.00-0.68); EOSINOPHILS PERCENT AUTO 0 % (0-6); Hematocrit 34.5 % (37.0-53.0); Hemoglobin 11.4 g/dL (13.5-17.5); IMMATURE GRAN ABSOLUTE AUTO 0.03 K/mm3 (0.00-0.10); IMMATURE GRAN PERCENT AUTO 0 % (0-1); LYMPHOCYTES ABSOLUTE AUTO 1.89 K/mm3 (0.84-5.20); LYMPHOCYTES PERCENT AUTO 21 % (21-46); MONOCYTES ABSOLUTE AUTO 0.89 K/mm3 (0.16-1.47); MONOCYTES PERCENT AUTO 10 % (4-13); Mean Corpuscular HGB Conc 33.0 g/dL (31.5-36.5); Mean Corpuscular Volume 95 fL (80-100); NEUTROPHILS ABSOLUTE AUTO 6.24 K/mm3 (1.96-9.15); NEUTROPHILS PERCENT AUTO 69 % (41-73); NRBC ABSOLUTE 0.00 K/mm3 (0.00-0.02); NRBC Auto 0.0 /100 WBC (0.0-0.2); Platelet Count 344 K/mm3 (150-400); RDW Coefficient Variation 15.0 % (11.7-14.2); RDW Standard Deviation 52.9 fL (35.1-46.3)
[2025-05-23 05:27] LABS: Anion Gap 11.0 mmol/L (3-11); Blood Urea Nitrogen 6.0 mg/dL (8-24); CO2, Blood 23.0 mmol/L (21-32); Calcium, Blood 7.5 mg/dL (8.5-10.1); Chloride, Blood 99.0 mmol/L (98-108); Creatinine, Blood 0.51 mg/dL (0.60-1.20); Glucose, Blood 71.0 mg/dL (70-99); Potassium, Blood 4.0 mmol/L (3.5-5.5); Sodium, Blood 129.0 mmol/L (136-145)
[2025-05-23] MEDS ORDERED: Lactobacil 2-S.Thermo-Bifido 1 1 Cap PO SCH (09:00)
[2025-05-23 09:24] VITALS: BP 164/86
[2025-05-23] MEDS ORDERED: HYDROcodone 5-APAP 325 TAB PO PRN (09:45)
[2025-05-23 13:30] VITALS: BP 184/104
[2025-05-23 16:54] VITALS: BP 187/96
--- NOTE | 2025-05-23 17:59 | NUR ---
SHIFT SUMMARY PT CONT LEVEL OF CARE S/P L BKA 1 DAY. PT NOTED TO BE A&OX4 PT IS ABLE TO MAKE NEEDS KNOWN. PT STARTED BACK ON A CONSISTENT CARB DIET THIS SHIFT. PT NOTED TO VOICE C/O PAIN TO L LEG RECIEVED ORDER FOR [facility] AND PT HAS BEEN MEDICATED PER EMAR SEE MAR FOR MORE DETAILS. CURRENTLY AWAITING ORTHO TO ROUND ON PT. POSSIBLE DC IN NEXT 48HRS.
[2025-05-23 19:52] VITALS: BP 183/99
--- NOTE | 2025-05-24 02:00 | NUR ---
SHIFT SUMMARY: PT IS AOX4. PT IS POD 2 LEFT BKA. DRESSING NOT CHANGED. WAITING FOR SURGEONS ORDERS. MEDICATED PER EMAR FOR PAIN AND ANTIBIOTICS. PT RESTING MOST OF THE NIGHT. NO ACUTE CHANGES.
[2025-05-24 04:24] VITALS: BP 183/97
[2025-05-24 05:16] LABS: Anion Gap 7.0 mmol/L (3-11); Blood Urea Nitrogen 5.0 mg/dL (8-24); CO2, Blood 28.0 mmol/L (21-32); Calcium, Blood 7.5 mg/dL (8.5-10.1); Chloride, Blood 99.0 mmol/L (98-108); Creatinine, Blood 0.5 mg/dL (0.60-1.20); Glucose, Blood 106.0 mg/dL (70-99); Potassium, Blood 3.3 mmol/L (3.5-5.5); Sodium, Blood 131.0 mmol/L (136-145)
[2025-05-24 07:22] VITALS: BP 176/98
[2025-05-24] MEDS ORDERED: Enoxaparin 40 MG/0.4 ML SYR SC SCH (09:00)
[2025-05-24 11:11] VITALS: BP 180/99
[2025-05-24] MEDS ORDERED: PROBIOTIC1 EA13 PO (16:07)
[2025-05-24] MEDS ORDERED: AMOCLA875 PO (16:07)
--- NOTE | 2025-05-24 16:28 | NUR ---
DR BROWNING CAME TO SEE THE PT- SURGICAL DRESSING WAS REMOVED, VERBAL ORDER RECIEVED FOR WOUND CARE. PLACED ORDER IN ORDER MANAGEMENT AND CALLED DR NUNES, SHE IS AWARE DR BROWNING STATES THE PT CAN GO HOME TODAY.
[2025-05-24 16:38] VITALS: BP 183/101
--- NOTE | 2025-05-24 19:15 | NUR ---
DISCHARGE NOTE- PT WAS GIVEN VERBAL AND WRITTEN DISCHARGE INSTRUCTIONS AND ACKNOWLEDGED UNDERSTANDING OF THEM. IV DC'D PRIOR TO DISCHARGE. PT ESCORTED OUT VIA WC BY THE DOUBLER HELPER NO S&S OF DISTRESS NOTED AT THE TIME OF DISCHARGE.
== END 2025-05-24 18:12 | disposition home or self-care (01) | DRG 240 ==
LOC: ER 09:47 → MEDS 12:58 → PCU 05-19 13:48 → MEDS 05-21 16:16
PROVIDERS: Emergency Medicine; Family Medicine; Orthopaedic Surgery Sports Medicine; ADMIT Internal Medicine
PROC: 3E03329 Introduction of Other Anti-infective into Peripheral Vein, Percutaneous Approach (ICD-10-PCS; 2025-05-17)
PROC: 047L3Z1 Dilation of Left Femoral Artery using Drug-Coated Balloon, Percutaneous Approach (ICD-10-PCS; 2025-05-19)
PROC: 047N3Z1 Dilation of Left Popliteal Artery using Drug-Coated Balloon, Percutaneous Approach (ICD-10-PCS; 2025-05-19)
PROC: 047S3ZZ Dilation of Left Posterior Tibial Artery, Percutaneous Approach (ICD-10-PCS; 2025-05-19)
PROC: 04FL3ZZ Fragmentation of Left Femoral Artery, Percutaneous Approach (ICD-10-PCS; 2025-05-19)
PROC: 04FN3ZZ Fragmentation of Left Popliteal Artery, Percutaneous Approach (ICD-10-PCS; 2025-05-19)
PROC: 0Y6J0Z3 Detachment at Left Lower Leg, Low, Open Approach (ICD-10-PCS; principal; 2025-05-22 15:00)
DX: E11.52 Type 2 diabetes mellitus with diabetic peripheral angiopathy with gangrene (principal); M84.675A Pathological fracture in other disease, left foot, initial encounter for fracture; M86.8X7 Other osteomyelitis, ankle and foot; E11.621 Type 2 diabetes mellitus with foot ulcer; E11.69 Type 2 diabetes mellitus with other specified complication; L97.529 Non-pressure chronic ulcer of other part of left foot with unspecified severity; I10 Essential (primary) hypertension; E78.5 Hyperlipidemia, unspecified; J44.89 Other specified chronic obstructive pulmonary disease; E66.9 Obesity, unspecified; F10.10 Alcohol abuse, uncomplicated; F17.210 Nicotine dependence, cigarettes, uncomplicated; F41.9 Anxiety disorder, unspecified; I77.1 Stricture of artery; Z89.412 Acquired absence of left great toe; Z89.422 Acquired absence of other left toe(s); Z68.23 Body mass index [BMI] 23.0-23.9, adult; Z79.2 Long term (current) use of antibiotics; Z79.84 Long term (current) use of oral hypoglycemic drugs; Z79.02 Long term (current) use of antithrombotics/antiplatelets; Z79.899 Other long term (current) drug therapy; Z90.49 Acquired absence of other specified parts of digestive tract; Z88.5 Allergy status to narcotic agent
CPT/HCPCS: 36415; 37225; 37228; 71045; 73630; 73720; 75625; 75716; 75774; 76937; 80048; 80053; 80202; 82947; 83605; 83880; 84100; 84484; 85025; 85610; 85730; 87040; 88307; 93005; 93010; 93926; 94760; 96374; 97116; 97161; 97530; 99152; 99153; 99285-25; A9270; A9579; C1714; C1725; C1760; C1769; C1887; C1894; C2623; J0165; J0690; J1100; J1171; J1644; J1650; J2250; J2405; J2543; J2704; J2795; J3010; J3373; J3411; J3480; J7030; J7040; J7050; Q9967

== ENCOUNTER 2025-06-19 00:32 | Emergency (ER) | payer OTHER ==
[~2025-06-19] VITALS: Ht 188 cm; Wt 81.7 kg
[~2025-06-19 00:32] MED LIST changes: +AMOCLA875 PO; +Norco 5-325 Ta1 EACH PO; +PROBIOTIC1 EA13 PO
[2025-06-19 00:40] VITALS: BP 135/81
[2025-06-19] MEDS ORDERED: CEPH500 PO (03:12)
== END 2025-06-19 03:17 | disposition home or self-care (01) ==
LOC: ER 00:32
DX: T81.31XA Disruption of external operation (surgical) wound, not elsewhere classified, initial encounter (principal); I10 Essential (primary) hypertension; E11.9 Type 2 diabetes mellitus without complications; E78.5 Hyperlipidemia, unspecified; Z87.891 Personal history of nicotine dependence; Z79.84 Long term (current) use of oral hypoglycemic drugs; Z79.899 Other long term (current) drug therapy; Z79.02 Long term (current) use of antithrombotics/antiplatelets; Z88.5 Allergy status to narcotic agent
CPT/HCPCS: 73560-LT; 99283-25

== ENCOUNTER 2025-06-20 13:04 | Day surgery (SDC) | payer OTHER ==
[2025-06-20] VITALS (8 sets, daily range): BP systolic 103–157; BP diastolic 59–96
[~2025-06-20] VITALS: Ht 188 cm; Wt 74.9 kg
[~2025-06-20 13:04] MED LIST changes: +CEPH500 PO
[2025-06-20] MEDS ORDERED: CeFAZolin Sodium 2,000 MG in NS 100 ML IV SCH (13:35)
[2025-06-20] MEDS ORDERED: HYDROmorphone HCl/Pf 1MG SYR IV PRN (13:45)
[2025-06-20] MEDS ORDERED: FentaNYL Citrate 50 MCG/ML 2 ML Injection IV PRN ×2 (13:45)
[2025-06-20] MEDS ORDERED: Albuterol 2.5 MG/3 ML VIAL INH PRN (13:50)
[2025-06-20] MEDS ORDERED: Ondansetron HCl 2 MG / ML 2ML Vial IV PRN (13:50)
--- NOTE | 2025-06-20 13:55 | NUR ---
Wheelchaired into Day Surgery. History, Chart, Medications and Allergies reviewed before start of procedure. Pre-Op teaching done. Pt verbalizes understanding. Patient States Post-Procedure ride home has been arranged.
[2025-06-20] MEDS ORDERED: FentaNYL Citrate 50 MCG/ML 2 ML Injection ONE (14:06)
[2025-06-20 15:54] LABS: BASOPHILS ABSOLUTE AUTO 0.03 K/mm3 (0.00-0.23); BASOPHILS PERCENT AUTO 1 % (0-2); EOSINOPHILS ABSOLUTE AUTO 0.06 K/mm3 (0.00-0.68); EOSINOPHILS PERCENT AUTO 1 % (0-6); Hematocrit 35.2 % (37.0-53.0); Hemoglobin 11.7 g/dL (13.5-17.5); IMMATURE GRAN ABSOLUTE AUTO 0.01 K/mm3 (0.00-0.10); IMMATURE GRAN PERCENT AUTO 0 % (0-1); LYMPHOCYTES ABSOLUTE AUTO 1.91 K/mm3 (0.84-5.20); LYMPHOCYTES PERCENT AUTO 33 % (21-46); MONOCYTES ABSOLUTE AUTO 0.47 K/mm3 (0.16-1.47); MONOCYTES PERCENT AUTO 8 % (4-13); Mean Corpuscular HGB Conc 33.2 g/dL (31.5-36.5); Mean Corpuscular Volume 96 fL (80-100); NEUTROPHILS ABSOLUTE AUTO 3.40 K/mm3 (1.96-9.15); NEUTROPHILS PERCENT AUTO 58 % (41-73); NRBC ABSOLUTE 0.00 K/mm3 (0.00-0.02); NRBC Auto 0.0 /100 WBC (0.0-0.2); Platelet Count 205 K/mm3 (150-400); RDW Coefficient Variation 15.9 % (11.7-14.2); RDW Standard Deviation 56.8 fL (35.1-46.3)
[2025-06-20] MEDS ORDERED: Bupivacaine 0.5% W/EPI 1:200000 SDV 30 ML Vial ONE (16:06)
[2025-06-20] MEDS ORDERED: Ondansetron HCl 2 MG / ML 2ML Vial ONE (16:06)
[2025-06-20] MEDS ORDERED: Vancomycin HCl 1000 MG ADDvantage ONE (16:10)
--- NOTE | 2025-06-20 16:13 | NUR ---
06/20/25 1613 Elizabeth Carballo VANCOMYCIN POWDER 1GM INSTILLED INTO WOUND BY .
[2025-06-20 16:20] LABS: Anion Gap 3.0 mmol/L (3-11); Blood Urea Nitrogen 6.0 mg/dL (8-24); CO2, Blood 29.0 mmol/L (21-32); Calcium, Blood 8.2 mg/dL (8.5-10.1); Chloride, Blood 106.0 mmol/L (98-108); Creatinine, Blood 0.58 mg/dL (0.60-1.20); Glucose, Blood 103.0 mg/dL (70-99); Potassium, Blood 3.7 mmol/L (3.5-5.5); Sodium, Blood 134.0 mmol/L (136-145)
[2025-06-20] MEDS ORDERED: HYDROmorphone HCl/Pf 1MG SYR ONE (16:53)
--- NOTE | 2025-06-20 17:36 | NUR ---
Discharge instructions reviewed with patient. Patient verbalizes understanding. Copy given to patient to take home. Dressing to procedure site clean, dry, intact with no visible drainage, swelling, erythema or bruising noted. Patient States Post-Procedure ride home has been arranged. Discharged via wheelchair to private car for ride home. OUT VIA TO CARE OF SPOUSE AT [id number]
== END 2025-06-20 23:00 | disposition home or self-care (01) ==
LOC: ORSCMMR 13:04
PROVIDERS: Nurse Anesthetist, Certified Registered; Orthopaedic Surgery
PROC: 0KBT0ZZ Excision of Left Lower Leg Muscle, Open Approach (ICD-10-PCS; principal; 2025-06-20 16:00)
DX: T81.30XA Disruption of wound, unspecified, initial encounter (principal); I10 Essential (primary) hypertension; E11.9 Type 2 diabetes mellitus without complications; E78.5 Hyperlipidemia, unspecified; F17.210 Nicotine dependence, cigarettes, uncomplicated; Z79.84 Long term (current) use of oral hypoglycemic drugs; Z79.02 Long term (current) use of antithrombotics/antiplatelets; Z79.899 Other long term (current) drug therapy; D46.1 Refractory anemia with ring sideroblasts; I73.9 Peripheral vascular disease, unspecified
CPT/HCPCS: 36415; 80048; 82947; 85025; 87071; 87075; 87077; 87106; 87186; 87205; A9270; J0690; J1171; J2405; J2704; J3010; J3373; J7050; J7120

== ENCOUNTER 2025-08-16 11:25 | Day surgery (SDC) | payer OTHER ==
[~2025-08-16] VITALS: Ht 188 cm; Wt 79.5 kg
[2025-08-16] VITALS (11 sets, daily range): BP systolic 121–180; BP diastolic 67–94
[2025-08-16] MEDS ORDERED: FentaNYL Citrate 50 MCG/ML 2 ML Injection ONE (12:26)
[2025-08-16] MEDS ORDERED: Ondansetron HCl 2 MG / ML 2ML Vial ONE (12:27)
[2025-08-16] MEDS ORDERED: Metoclopramide HCl 5MG / ML 2ML Vial ONE (12:27)
[2025-08-16] MEDS ORDERED: HYDROmorphone HCl/Pf 1MG SYR IV PRN (12:30)
[2025-08-16] MEDS ORDERED: Metoclopramide HCl 5MG / ML 2ML Vial IV PRN (12:30)
[2025-08-16] MEDS ORDERED: Ondansetron HCl 2 MG / ML 2ML Vial IV PRN (12:30)
[2025-08-16] MEDS ORDERED: FentaNYL Citrate 50 MCG/ML 2 ML Injection IV PRN ×2 (12:30)
[2025-08-16] MEDS ORDERED: Morphine Sulfate 4 MG/1 ML Injection IV PRN (12:35)
[2025-08-16] MEDS ORDERED: CeFAZolin Sodium 2,000 MG in NS 100 ML IV SCH (12:50)
[2025-08-16] MEDS ORDERED: Vancomycin HCl 1000 MG ADDvantage ONE (12:59)
[2025-08-16] MEDS ORDERED: CeFAZolin Sodium 1000 mg Vial ONE (13:03)
[2025-08-16] MEDS ORDERED: HydrALAZINE HCl 20 MG / ML 1ML Vial ONE (13:10)
[2025-08-16] MEDS ORDERED: Bupivacaine 0.5% HCl 5 MG/ML 30MLVIAL ONE (13:23)
[2025-08-16] MEDS ORDERED: Sugammadex Sodium 200 MG/2ML SDV (100 MG/ML) ONE (13:26)
[2025-08-16] MEDS ORDERED: HYDROmorphone HCl/Pf 1MG SYR ONE (14:14)
--- NOTE | 2025-08-16 15:27 | NUR ---
PT DRESSES HIMSELF AND SELF TRANSFERS TO W/C W/O DIFFICULTY. Discharge instructions reviewed with patient. Patient verbalizes understanding. Copy given to patient to take home. Discharged via wheelchair to ADMITTING AREA. PT WAITING FOR MEDICAL TAXI.
== END 2025-08-16 23:00 | disposition home or self-care (01) ==
LOC: ORSCMMR 11:25
PROVIDERS: Orthopaedic Surgery Sports Medicine
PROC: 0Y6J0Z1 Detachment at Left Lower Leg, High, Open Approach (ICD-10-PCS; principal; 2025-08-16 12:30)
DX: T81.31XD Disruption of external operation (surgical) wound, not elsewhere classified, subsequent encounter (principal); Z89.512 Acquired absence of left leg below knee; I10 Essential (primary) hypertension; F17.210 Nicotine dependence, cigarettes, uncomplicated; E11.9 Type 2 diabetes mellitus without complications; Z79.84 Long term (current) use of oral hypoglycemic drugs; Z79.899 Other long term (current) drug therapy; Z79.02 Long term (current) use of antithrombotics/antiplatelets
CPT/HCPCS: 82947; 87070; 87071; 87075; 87076; 87077; 87186; 87205; 88305; 88311; A9270; J0360; J0690; J1171; J2405; J2704; J2765; J3010; J3373; J7120